=== PATIENT | male | born 1990 | race Caucasian/White ===

== ENCOUNTER 2020-06-22 08:39 | Emergency (ER) | payer SELFPAY ==
[~2020-06-22] VITALS: Ht 170.2 cm; Wt 83.6 kg
--- NOTE | 2020-06-22 08:46 | NUR ---
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 EDUCATED ON ED PROCESS. ENCOURAGED TO STAY FOR EVAL.
--- NOTE | 2020-06-22 09:03 | NUR ---
PT C/O FEELING SOB TIMES 2 DAYS. PT STATES IT WAS BAD THIS AM AND HE COULD NOT TAKE A DEEP BREATH. PT DENIES CP AT THIS TIME. PT REFUSING ANY TREATMENT THAT INVOLVES NEEDLES.
[2020-06-22] MEDS ORDERED: LORazepam 1MG TABLET ONE (09:12)
--- NOTE | 2020-06-22 09:15 | NUR ---
PT MEDICATED PER MAR
[2020-06-22] MEDS ORDERED: LORazepam 1MG TABLET PO ONE (09:30)
--- NOTE | 2020-06-22 09:46 | NUR ---
PT PLACED ON O2 VIA NC 2 LPM DUE TO SATS DROPPING UNDER 90% WHILE SLEEPING
[2020-06-22 10:22] VITALS: BP 168/120
--- NOTE | 2020-06-22 10:30 | NUR ---
PT REFUSING FURTHER CARE IN ED. PT VERBAL AGREEMENT TO AMA PAPERWORK. PT ADVISED OF POSSIBLE CONSEQUENCES OF LEAVING ED AMA, UP TO AND INCLUDING . PT STATED UNDERSTANDING OF RISKS. PT REC'VD PRESCRIPTION FOR MEDICATION AND STATED UNDERSTANDING OF IMPORTANCE OF TAKING THE MEDICATIONS PRESCRIBED. PT AMBULATED TO DC AREA, STEADY GAIT. PT'S SISTER AT ED AND WILL DRIVE HIM HOME.
== END 2020-06-22 10:35 | disposition left against medical advice (07) ==
LOC: ED 09:00
DX: J18.9 Pneumonia, unspecified organism (principal); R51.9 Headache, unspecified; R06.02 Shortness of breath; R06.00 Dyspnea, unspecified; I10 Essential (primary) hypertension; R00.0 Tachycardia, unspecified; J45.909 Unspecified asthma, uncomplicated; F17.200 Nicotine dependence, unspecified, uncomplicated
CPT/HCPCS: 71045; 93005; 99283